=== PATIENT | female | born 1985 | race African-American/Black ===

== ENCOUNTER 2016-09-25 13:32 | Emergency (ER) | payer OTHER ==
[~2016-09-25] VITALS: Ht 170.2 cm; Wt 90.7 kg
[~2016-09-25 13:32] MED LIST: AMOXICILLIN 50500 M1 PO; IBUPROFEN 600600 M1 PO
[2016-09-25] MEDS ORDERED: CELEXA20 MG PO (13:41)
[2016-09-25] MEDS ORDERED: BIRTH CONTROL PO (13:41)
[2016-09-25] MEDS ORDERED: TESSALON PERLE100 MG PO (15:14)
[2016-09-25] MEDS ORDERED: FLONASE 0.05%50 MCG NASAL (15:14)
[2016-09-25] MEDS ORDERED: VENTOLIN HFA 1818 GM INH (15:14)
[2016-09-25] MEDS ORDERED: PREDNISONE 20 M20 MG PO (15:14)
[2016-09-25 15:31] VITALS: BP 124/84
== END 2016-09-25 15:32 | disposition home or self-care (01) ==
LOC: ER 13:32
DX: J30.9 Allergic rhinitis, unspecified (principal); J40 Bronchitis, not specified as acute or chronic; F17.210 Nicotine dependence, cigarettes, uncomplicated; Z98.890 Other specified postprocedural states

== ENCOUNTER 2018-06-23 11:03 | Emergency (ER) | payer OTHER ==
[~2018-06-23] VITALS: Ht 167.6 cm; Wt 97.5 kg
[~2018-06-23 11:03] MED LIST changes: +BIRTH CONTROL PO; +CELEXA20 MG PO; +FLONASE 0.05%50 MCG NASAL; +PREDNISONE 20 M20 MG PO; +TESSALON PERLE100 MG PO; +VENTOLIN HFA 1818 GM INH
[2018-06-23 11:08] VITALS: BP 137/84
== END 2018-06-23 11:35 | disposition home or self-care (01) ==
LOC: ER 11:03
DX: M43.6 Torticollis (principal); F17.210 Nicotine dependence, cigarettes, uncomplicated; Z98.890 Other specified postprocedural states